=== PATIENT | female | born 1990 | race Caucasian/White ===

== ENCOUNTER 2018-04-04 02:07 | Emergency (ER) | payer BC ==
[2018-04-04] MEDS: LORazepam 2 MG/ML VIAL (J2060) IV ×2 (03:13→04:51)
[2018-04-04] MEDS: NS 1,000 ML IV (03:15)
[2018-04-04] MEDS: ONDANSETRON 4MG/2ML VIAL (J2405) IV ×2 (03:15→05:00)
[2018-04-04 03:30] LABS: BASO % 0.2 % (0.0-1.0); HEMATOCRIT 36.2 % (36.0-47.0); HEMOGLOBIN 12.1 g/dl (12.0-15.5); IMMATURE GRANULOCYTE % 0.3 % (0-3.0); LYMPH # 0.8 10^3/uL (1.5-6.5); LYMPH % 6.5 % (24.0-44.0); MEAN CORPUSCULAR HEMOGLOBIN 26.8 pg (27.0-33.0); MEAN CORPUSCULAR HGB CONC 33.4 g/dl (32.0-36.5); MEAN CORPUSCULAR VOLUME 80.3 fl (80.0-96.0); MONO # 0.6 10^3/uL (0.0-0.8); MONO % 5.1 % (0.0-5.0); NEUTROPHILS # 10.2 10^3/uL (1.8-7.7); NEUTROPHILS % 87.9 % (36.0-66.0); PLATELET COUNT, AUTOMATED 240 10^3/uL (150-450); RED BLOOD COUNT 4.51 10^6/uL (4.00-5.40); RED CELL DISTRIBUTION WIDTH 12.7 % (11.5-14.5); WHITE BLOOD COUNT 11.6 10^3/uL (4.0-10.0)
[2018-04-04 03:35] LABS: CONTROL LINE HCG INT CTR LINE PRESENT; HCG, SERUM QUALITATIVE NEGATIVE (NEGATIVE)
[2018-04-04 03:43] LABS: ALBUMIN 4.3 GM/DL (3.2-5.2); ALBUMIN/GLOBULIN RATIO 1.34 (1.00-1.93); ALKALINE PHOSPHATASE 65 U/L (45-117); ALT/SGPT 23 U/L (12-78); ANION GAP 13 MEQ/L (8-16); AST/SGOT 18 U/L (7-37); BILIRUBIN,DIRECT 0.1 MG/DL (0.0-0.2); BILIRUBIN,TOTAL 0.4 MG/DL (0.2-1.0); BLOOD UREA NITROGEN 12 MG/DL (7-18); CALCIUM LEVEL 8.9 MG/DL (8.5-10.1); CARBON DIOXIDE LEVEL 20 MEQ/L (21-32); CHLORIDE LEVEL 107 MEQ/L (98-107); CREATININE FOR GFR 1.02 MG/DL (0.55-1.30); GLOMERULAR FILTRATION RATE > 60.0 (>60); GLUCOSE, FASTING 184 MG/DL (70-100); LIPASE 74 U/L (73-393); POTASSIUM SERUM 3.3 MEQ/L (3.5-5.1); SODIUM LEVEL 140 MEQ/L (136-145); TOTAL PROTEIN 7.5 GM/DL (6.4-8.2)
[2018-04-04] MEDS ORDERED: PROMETHAZINE INJ 25 MG/ML VIAL (J2550) As Ordered (04:00)
[2018-04-04] MEDS: PROMETHAZINE INJ 25 MG/ML VIAL (J2550) IV (04:15)
== END 2018-04-04 06:25 | disposition home or self-care (01) ==
LOC: M ED 02:07
DX: F41.0 Panic disorder [episodic paroxysmal anxiety] (principal); Z91.018 Allergy to other foods; F12.20 Cannabis dependence, uncomplicated
CPT/HCPCS: J2405

== ENCOUNTER 2021-05-03 07:39 | Emergency (ER) | payer BC, OTHER ==
[~2021-05-03] VITALS: Ht 160 cm; Wt 7.3 kg
[~2021-05-03 07:39] MED LIST: HYDR1TAB33 PO; SERT-141 PO; ZOFR4TAB14 PO
[2021-05-03] MEDS ORDERED: LEXA1TAB2 PO (07:46)
[2021-05-03] MEDS ORDERED: NS 1,000 ML IV ONE (08:05)
[2021-05-03] MEDS ORDERED: CAPSAICIN 0.025% CR 60 GM TOP ONE (08:10)
[2021-05-03 08:58] LABS: ALBUMIN 4.4 GM/DL (3.2-5.2); ALT/SGPT 27 U/L (12-78); BILIRUBIN,DIRECT < 0.1 MG/DL (0.0-0.2); BILIRUBIN,TOTAL 0.4 MG/DL (0.2-1.0); BLOOD UREA NITROGEN 10 MG/DL (7-18); CALCIUM LEVEL 9.2 MG/DL (8.5-10.1); CARBON DIOXIDE LEVEL 23 MEQ/L (21-32); CHLORIDE LEVEL 104 MEQ/L (98-107); CREATININE FOR GFR 0.74 MG/DL (0.55-1.30); GLOMERULAR FILTRATION RATE > 60.0 (>60); GLUCOSE, FASTING 137 MG/DL (70-100); LIPASE 67 U/L (73-393); POTASSIUM SERUM 4.4 MEQ/L (3.5-5.1); SODIUM LEVEL 136 MEQ/L (136-145); TOTAL PROTEIN 8.2 GM/DL (6.4-8.2)
[2021-05-03] MEDS ORDERED: diphenhydrAMINE 25MG CAP PO ONE (09:10)
[2021-05-03 10:09] VITALS: BP 127/54
[2021-05-03 10:13] LABS: BASO % 0.2 % (0.0-1.0); HEMATOCRIT 31.1 % (36.0-47.0); HEMOGLOBIN 9.4 g/dl (12.0-15.5); LYMPH # 0.7 10^3/uL (1.5-5.0); LYMPH % 12.6 % (24.0-44.0); MEAN CORPUSCULAR HEMOGLOBIN 22.3 pg (27.0-33.0); MEAN CORPUSCULAR HGB CONC 30.2 g/dl (32.0-36.5); MEAN CORPUSCULAR VOLUME 73.7 fl (80.0-96.0); MONO # 0.3 10^3/uL (0.0-0.8); MONO % 5.8 % (2.0-8.0); NEUTROPHILS # 4.2 10^3/uL (1.5-8.5); NEUTROPHILS % 81.2 % (36.0-66.0); PLATELET COUNT, AUTOMATED 337 10^3/uL (150-450); RED BLOOD COUNT 4.22 10^6/uL (4.00-5.40); WHITE BLOOD COUNT 5.2 10^3/uL (4.0-10.0)
== END 2021-05-03 10:25 | disposition home or self-care (01) ==
LOC: M ED 07:39
DX: F12.188 Cannabis abuse with other cannabis-induced disorder (principal); D64.9 Anemia, unspecified; F41.0 Panic disorder [episodic paroxysmal anxiety]; Z79.899 Other long term (current) drug therapy

== ENCOUNTER 2025-03-31 05:21 | Emergency (ER) | payer OTHER, SELFPAY ==
[~2025-03-31] VITALS: Ht 157.5 cm; Wt 56.0 kg
[~2025-03-31 05:21] MED LIST changes: +LEXA1TAB2 PO
[2025-03-31 07:08] LABS: BASO # 0.0 10^3/uL (0.0-0.2); BASO % 0.3 % (0.0-1.0); EOS # 0.0 10^3/uL (0.0-0.5); EOS % 0.1 % (0.0-3.0); LYMPH # 2.1 10^3/uL (1.5-5.0); LYMPH % 28.9 % (24.0-44.0); MONO # 0.8 10^3/uL (0.0-0.8); MONO % 11.1 % (2.0-8.0); NEUTROPHILS # 4.4 10^3/uL (1.5-8.5); NEUTROPHILS % 59.3 % (36.0-66.0); PLATELET COUNT, AUTOMATED 284 10^3/uL (150-450)
[2025-03-31] MEDS: NS (Normal Saline) 0.9% 1,000 ML IV ONE ×2 (07:10→07:17)
[2025-03-31] MEDS: HALOPERIDOL LACTATE 5 MG/ML VIAL IV ONE (07:17)
[2025-03-31 07:32] LABS: HCG, SERUM QUALITATIVE NEGATIVE (NEGATIVE)
[2025-03-31 07:33] LABS: ALT/SGPT 17 U/L (7.0-40); AST/SGOT 15 U/L (<34)
[2025-03-31 09:15] VITALS: BP 134/86; TEMP 98.2; O2SAT 100
[2025-03-31] MEDS ORDERED: CLON0.5T17 PO (09:39)
[2025-03-31] MEDS ORDERED: HOME MED LIST COMPLETE! XX SCH (09:40)
== END 2025-03-31 09:20 | disposition home or self-care (01) ==
LOC: M ED 05:21
DX: F12.188 Cannabis abuse with other cannabis-induced disorder (principal); R11.2 Nausea with vomiting, unspecified; K90.0 Celiac disease; Z90.89 Acquired absence of other organs; Z91.02 Food additives allergy status; Z79.899 Other long term (current) drug therapy
CPT/HCPCS: 80047; 80076; 83690; 84703; 85025; 96361; 96374; 99284; J1630